=== PATIENT | male | born 1960 | race Caucasian/White ===

== ENCOUNTER 2016-11-16 08:47 | Emergency (ER) | payer SELFPAY ==
[~2016-11-16] VITALS: Ht 177.8 cm; Wt 109.2 kg
[~2016-11-16 08:47] MED LIST: CLAR10TA13 PO; CO Q100C9 PO; FISH500C PO; HYDR10SO PO; SUPETAB PO; VITA20003 PO; Z.0.COMMODE-3:1; Z.0.CPM; Z.0.WALKERFRONT
[2016-11-16 08:57] VITALS: BP 132/82; PULSE 70; RESP 16; TEMP 98.3; O2SAT 97
[2016-11-16] MEDS ORDERED: METH40TA PO (09:06)
--- NOTE | 2016-11-16 09:58 | PD ---
HPI Chief Complaint: Musculoskeletal Complaint Time Seen by Provider: 09:09 Travel History International Travel<30 days: No Contact w/Intl Traveler<30days: No Traveled to known affect area: No History of Present Illness HPI 56-year-old male right foot pain gradually increasing over the past few weeks or so. 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 He is on his feet all day long often carrying heavy objects. He denies any specific injury. The pain is constant and much worse in the mornings. It's worse with ambulation. He is unable to work right now because of the pain. He has been taking 800 mg Motrin 3 times a day with minimal help. Patient also takes methadone which has not helped with the pain. [facility] Past Medical History Cancer: No Cardiovascular Problems: No Cirrhosis: Yes Diabetes: No Diminished Hearing: No Endocrine: No Genitourinary: No Hepatitis: Yes (hep c) Hiatal Hernia: Yes (pt states questionable) Hypertension: Yes Immune Disorder: No Musculoskeletal: Yes (CHRONIC BACK PAIN) Neurologic: No Psychiatric: No Reproductive: No Respiratory: No Immunizations Current: No Pancreatitis: Yes Thyroid Disease: No Influenza Vaccination: No Past Surgical History Abdominal Surgery: Yes (nik groin with mesh hernia repair) Body Medical Devices: mesh Joint Replacement: Yes (KNEE) Other Surgery: Yes (TUMOR OFF HEAD; EXTERNAL) Social History Alcohol Use: No (HEAVY DRINKER FOR 30 YEARS) Tobacco Use: Yes (1 PPD FOR 30 YEARS) Substance Use: Yes (OPIATE ADDICTION) Allergies-Medications (Allergen,Severity, Reaction): Coded Allergies: No Known Allergies (Verified , 11/16/16) Reported Meds & Prescriptions Reported Meds & Active Scripts Active Reported Methadone (Methadone HCl) 40 Mg Tab 155 Mg PO DAILY Review of Systems Except as stated in HPI: all other systems reviewed are Neg Physical Exam Narrative GENERAL: 56-year-old male well-nourished well-developed pleasant SKIN: Focused skin assessment warm/dry. MUSCULOSKELETAL: Patient appears to have pes planus bilaterally. There is minimal tenderness generally along the medial aspect of the foot inferior to the malleoli is and posteriorly along the medial malleolus on the right side. The patient is ambulatory. NEUROLOGICAL: Awake and alert. No obvious cranial nerve deficits. Motor grossly within normal limits. Normal speech. PSYCHIATRIC: Appropriate mood and affect; insight and judgment normal. Data Data Last Documented VS Vital Signs Date Time Temp Pulse Resp B/P Pulse Ox O2 Delivery O2 Flow Rate FiO2 11/16/16 08:57 98.3 70 16 132/82 97 Vital signs reviewed Orders ^ [place] Bandage (11/16/16 09:24) Ice/Cold Pack (11/16/16 09:24) Foot, Complete ([id number]) (11/16/16 ) Mandatory Outpatient Referral (11/16/16 09:24) MDM Medical Decision Making Medical Screen Exam Complete: Yes Emergency Medical Condition: Yes Medical Record Reviewed: Yes Differential Diagnosis Collapse of the arch of the right foot, stress fracture, osteoarthritis, heel spur Narrative Course We discussed just for pain management. Work note provided for 3 days at patient 's request. Mandatory referral to podiatry has been placed. Patient agreeable with plan. The foot x-ray shows no fracture. Diagnosis Primary Impression: Foot pain, right Referrals: Brigida Verdugo DPM 2 days Additional Instructions: You have a choice when it comes to health care, and we are glad that you chose [facility] Hopefully, we have met your expectations on today's visit. You are welcome to return to [facility] at any time, as we are committed to meeting the health care needs of our community. Med/Other Pt SpecificInfo: No Change to Meds Disposition: 01 DISCHARGE HOME Condition: Adalberto Hernandez MD November 16, 2016 09:58
--- NOTE | 2016-11-16 10:00 | RADHPO ---
EXAM DATE/TIME: 11/16/2016 09:33 [place] COMPARISON: No previous studies available for comparison. INDICATIONS : Right foot pain, posterior medial aspect, no known injury. MEDICAL HISTORY : None. SURGICAL HISTORY : None. ENCOUNTER: Initial ACUITY: 2 months PAIN SCORE: 2/10 LOCATION: Right posterior medial foot FINDINGS: Three view examination of the right foot demonstrates no dislocation, or fracture. There is soft tis herminia swelling along the medial aspect of the foot. The tarsal bones appear intact. The interphalangea l and metatarsophalangeal joints are intact. The calcaneus is intact. Bony mineralization is normal . CONCLUSION: 1. Soft tissue swelling along the medial right foot. 2. No acute fracture or joint dislocation. Chucky Hollins MD on November 16, 2016 at 9:57 Board Certified Radiologist. This report was verified electronically.
[2016-11-16 10:11] VITALS: BP 126/78
== END 2016-11-16 10:16 | disposition home or self-care (01) ==
LOC: PHEFT 08:47
DX: M79.671 Pain in right foot (principal); K74.60 Unspecified cirrhosis of liver; B19.20 Unspecified viral hepatitis C without hepatic coma; I10 Essential (primary) hypertension; K85.90 Acute pancreatitis without necrosis or infection, unspecified; F17.200 Nicotine dependence, unspecified, uncomplicated; Z79.899 Other long term (current) drug therapy
CPT/HCPCS: 73630; 99283